=== PATIENT | male | born 1980 | race Two or more races ===

== ENCOUNTER 2018-03-10 23:20 | Emergency (ER) | payer SELFPAY ==
[2018-03-11] MEDS: fentaNYL PF VIAL 100 MCG/2 ML VIAL IV
[2018-03-11 00:22] LABS: LACTIC ACID 1.6 mmol/L (0.4-2.0)
[2018-03-11] MEDS: MORPHINE SULFATE 4 MG/ML DISP.SYRIN. IV (00:45)
[2018-03-11 00:50] LABS: ADD MAN DIFF? YES; BASO % 0 % (0-3); EOS # 0.1 x10^3/uL (0.0-0.7); EOS % 1 % (0-3); HEMATOCRIT 46.9 % (39.0-53.0); HEMOGLOBIN 16.2 g/dL (13.0-17.5); LYMPH # 1.6 x10^3/uL (1.0-4.8); LYMPH % 10 % (24-48); MEAN CORPUSCULAR HEMOGLOBIN 30 pg (25-35); MEAN CORPUSCULAR HGB CONC 35 g/dL (31-37); MEAN CORPUSCULAR VOLUME 85 fL (79-100); MONO # 1.7 x10^3/uL (0.0-1.1); MONO % 10 % (0-9); NEUT # 12.8 x10^3uL (1.8-7.7); NEUT % 79 % (31-73); PLATELET COUNT 259 x10^3/uL (140-400); RED BLOOD COUNT 5.49 x10^6/uL (4.30-5.70); RED CELL DISTRIBUTION WIDTH 13.6 % (11.5-14.5); WHITE BLOOD COUNT 16.2 x10^3/uL (4.0-11.0)
[2018-03-11 00:51] LABS: BILIRUBIN,URINE SMALL (NEG); CLARITY,URINE CLEAR; COLOR,URINE AMBER; GLUCOSE,URINE NEGATIVE (NEG); NITRITE,URINE NEGATIVE (NEG); PH,URINE 6.5; PROTEIN,URINE NEGATIVE (NEG-TRACE)
[2018-03-11 01:03] LABS: ANION GAP 7 (6-14); BLOOD UREA NITROGEN 11 mg/dL (8-26); BUN/CREATININE RATIO 14 (6-20); CALCIUM 8.4 mg/dL (8.5-10.1); CARBON DIOXIDE 27 mmol/L (21-32); CHLORIDE 100 mmol/L (98-107); CREATININE 0.8 mg/dL (0.7-1.3); GFR 109.4; GLUCOSE 105 mg/dL (70-99); POTASSIUM 3.7 mmol/L (3.5-5.1); SODIUM 134 mmol/L (136-145)
[2018-03-11 01:04] LABS: BACTERIA,URINE FEW /HPF (0-FEW); WBC,URINE TNTC /HPF (0-4)
[2018-03-11 01:09] LABS: ALBUMIN 3.2 g/dL (3.4-5.0); ALBUMIN/GLOBULIN RATIO 0.7 (1.0-1.7); ALK PHOS 101 U/L (46-116); ALT (SGPT) 41 U/L (16-63); AST (SGOT) 51 U/L (15-37); LIPASE 143 U/L (73-393); TOTAL BILIRUBIN 1.4 mg/dL (0.2-1.0); TOTAL PROTEIN 7.7 g/dL (6.4-8.2)
[2018-03-11 01:28] LABS: % EOS 2 % (0-5); % LYMPHS 8 % (24-48); % MONOS 8 % (0-10); % SEGS 82 % (35-66); PLT ESTIMATE ADEQUATE (ADEQUATE)
[2018-03-11] MEDS: AZITHROMYCIN 250 MG TABLET. PO (02:00)
== END 2018-03-11 02:16 | disposition home or self-care (01) ==
LOC: ER 23:20
DX: N45.3 Epididymo-orchitis (principal); R10.31 Right lower quadrant pain; R30.0 Dysuria
CPT/HCPCS: 36415; 76870; 80053; 81001; 83605; 83690; 85007; 85025; 87086; 96374; 96375; 99285-25; J2270; J3010; Q0144

== ENCOUNTER 2021-08-10 11:18 | Emergency (ER) | payer SELFPAY ==
[~2021-08-10] VITALS: Ht 177.8 cm; Wt 94.1 kg
[~2021-08-10 11:18] MED LIST: DOXY100T PO
[2021-08-10] MEDS ORDERED: FAMOTIDINE 20 MG/2 ML VIAL IVP ONE (12:15)
[2021-08-10] MEDS ORDERED: KETOROLAC 30 MG/ML VIAL. IVP ONE (12:15)
[2021-08-10] MEDS ORDERED: IV NORMAL SALINE 1000ML BAG 1,000 ML IV ONE (12:15)
--- NOTE | 2021-08-10 12:18 | PHYS DOC ---
Past Medical History Past Medical History: No Pertinent History Past Surgical History: Cholecystectomy Smoking Status: Current Every Day Smoker Alcohol Use: None Drug Use: None General Adult EDM: Chief Complaint: ABDOMINAL PAIN HPI: HPI: Patient is a 40-year-old male that presents today with upper abdominal pain. Patient states the pain started 2 days ago patient does report that he had gallbladder removal last week at [facility] patient is unsure of who the surgeon was. Patient denies nausea and vomiting, patient states he did have a little heartburn this morning, he did eat breakfast this morning as well. Patient does report having chills starting today but no documented fever, patient reports no diarrhea Review of Systems: Review of Systems: Constitutional: chills. [] Eyes: Denies change in visual acuity. [] HENT: Denies nasal congestion or sore throat. [] Respiratory: Denies cough or shortness of breath. [] Cardiovascular: Denies chest pain or edema. [] GI: abdominal pain, DENIES nausea, vomiting, bloody stools or diarrhea. [] : Denies dysuria. [] Musculoskeletal: Denies back pain or joint pain. [] Integument: Denies rash. [] Neurologic: Denies headache, focal weakness or sensory changes. [] Endocrine: Denies polyuria or polydipsia. [] Lymphatic: Denies swollen glands. [] Psychiatric: Denies depression or anxiety. [] Heart Score: C/O Chest Pain: N/A Risk Factors: Risk Factors: DM, Current or recent (<one month) smoker, HTN, HLP, family history of CAD, obesity. Risk Scores: Score 0 - 3: 2.5% MACE over next 6 weeks - Discharge Home Score 4 - 6: 20.3% MACE over next 6 weeks - Admit for Clinical Observation Score 7 - 10: 72.7% MACE over next 6 weeks - Early Invasive Strategies Current Medications: Current Medications Medications (Trade) Dose Ordered Sig/Paty Start Time Stop Time Status Last Admin Dose Admin Famotidine (Pepcid Vial) 20 mg 1X ONCE 08/10/21 12:15 08/10/21 12:16 UNV Ketorolac Tromethamine (Toradol 30mg Vial) 30 mg 1X ONCE 08/10/21 12:15 08/10/21 12:16 UNV Sodium Chloride 1,000 ml @ 999 mls/hr 1X ONCE 08/10/21 12:15 08/10/21 13:15 UNV Allergies: Allergies: Allergies Coded Allergies Type Severity Reaction Last Updated Verified No Known Drug Allergies 03/10/18 No Physical Exam: PE: Constitutional: Well developed, well nourished, mild distress, non-toxic appearance. [] HENT: Normocephalic, atraumatic, bilateral external ears normal, oropharynx moist, no oral exudates, nose normal. [] Eyes: PERRLA, EOMI, conjunctiva normal, no discharge. [] Neck: Normal range of motion, no tenderness, supple, no stridor. [] Cardiovascular:Heart rate regular rhythm, no murmur [] Lungs & Thorax: Bilateral breath sounds clear to auscultation [] Abdomen: Abdomen is soft tender with palpation along the epigastric area no masses noted, bowel sounds are hypoactive Skin: Warm, dry, no erythema, no rash. [] Back: No tenderness, no CVA tenderness. [] Extremities: No tenderness, no cyanosis, no clubbing, ROM intact, no edema. [] Neurologic: Alert and oriented X 3, normal motor function, normal sensory function, no focal deficits noted. [] Psychologic: Affect normal, judgement normal, mood normal. [] Current Patient Data: Labs: Laboratory Tests Test 08/10/21 12:30 White Blood Count 8.8 x10^3/uL Red Blood Count 5.41 x10^6/uL Hemoglobin 15.7 g/dL Hematocrit 45.7 % Mean Corpuscular Volume 84 fL Mean Corpuscular Hemoglobin 29 pg Mean Corpuscular Hemoglobin Concent 34 g/dL Red Cell Distribution Width 14.3 % Platelet Count 261 x10^3/uL Neutrophils (%) (Auto) 76 % Lymphocytes (%) (Auto) 11 % Monocytes (%) (Auto) 9 % Eosinophils (%) (Auto) 3 % Basophils (%) (Auto) 1 % Neutrophils # (Auto) 6.7 x10^3/uL Lymphocytes # (Auto) 1.0 x10^3/uL Monocytes # (Auto) 0.8 x10^3/uL Eosinophils # (Auto) 0.3 x10^3/uL Basophils # (Auto) 0.0 x10^3/uL Urine Collection Type Unknown Urine Color [place] Urine Clarity Clear Urine pH Urine Specific [place] Urine Protein mg/dL Urine Glucose (UA) Negative mg/dL Urine Ketones (Stick) mg/dL Urine Blood Urine Nitrite Urine Bilirubin Urine Urobilinogen Dipstick mg/dL Urine Leukocyte Esterase Urine RBC 0 /HPF Urine WBC 0 /HPF Urine Squamous Epithelial Cells Occ /LPF Urine Bacteria 0 /HPF Urine Mucus Marked /LPF Sodium Level 134 mmol/L Potassium Level 3.5 mmol/L Chloride Level 100 mmol/L Carbon Dioxide Level 24 mmol/L Anion Gap 10 Blood Urea Nitrogen 11 mg/dL Creatinine 0.7 mg/dL Estimated GFR (Cockcroft-Gault) 125.5 BUN/Creatinine Ratio 16 Glucose Level 99 mg/dL Calcium Level 8.4 mg/dL Total Bilirubin 5.6 mg/dL Direct Bilirubin 3.7 mg/dL Aspartate Amino Transf (AST/SGOT) 262 U/L Alanine Aminotransferase (ALT/SGPT) 308 U/L Alkaline Phosphatase 275 U/L Total Protein 6.9 g/dL Albumin 3.1 g/dL Albumin/Globulin Ratio 0.8 Lipase 117 U/L Current Medications Medications (Trade) Dose Ordered Sig/Paty Route PRN Reason Start Time Stop Time Status Last Admin Dose Admin Sodium Chloride 1,000 ml @ 999 mls/hr 1X ONCE IV 08/10/21 12:15 08/10/21 13:15 DC 08/10/21 12:38 Ketorolac Tromethamine (Toradol 30mg Vial) 30 mg 1X ONCE IVP 08/10/21 12:15 08/10/21 12:17 DC 08/10/21 12:39 Famotidine (Pepcid Vial) 20 mg 1X ONCE IVP 08/10/21 12:15 08/10/21 12:17 DC 08/10/21 12:39 Iohexol (Omnipaque 300 Mg/ml) 75 ml 1X ONCE IV 08/10/21 13:00 08/10/21 13:01 DC 08/10/21 13:05 Info (CONTRAST GIVEN -- Rx MONITORING) 1 each PRN DAILY PRN MC SEE COMMENTS 08/10/21 13:00 08/12/21 12:59 Fentanyl Citrate (Fentanyl 2ml Vial) 75 mcg 1X ONCE IVP 08/10/21 13:45 08/10/21 13:46 DC Vital Signs: Vital Signs Date Time Temp Pulse Resp B/P (MAP) Pulse Ox O2 Delivery O2 Flow Rate FiO2 08/10/21 15:12 73 101/63 (76) 99 Room Air 08/10/21 14:42 69 99/55 (70) 99 Room Air 08/10/21 14:32 18 98 Room Air 08/10/21 14:12 72 98/62 (74) 98 Room Air 08/10/21 13:42 60 105/73 (84) 97 Room Air 08/10/21 13:12 61 104/64 (77) 98 Room Air 08/10/21 11:25 97.4 73 18 109/60 (76) 100 Room Air 97.4 Vital Signs Date Time Temp Pulse Resp B/P (MAP) Pulse Ox O2 Delivery O2 Flow Rate FiO2 08/10/21 11:25 97.4 73 18 109/60 (76) 100 Room Air 97.4 EKG: EKG: [] Radiology/Procedures: Radiology/Procedures: REASON: ABDOMINAL PAIN, gb REMOVAL LAST WEEK PROCEDURE: CT ABD PELV W/ IV CONTRST ONLY CT abdomen and pelvis with contrast PQRS statement: CT scans at this facility use dose reduction including either automated exposure control, iterative reconstructions, and /or weight based radiation dosing via mA and kV modification when appropriate to reduce radiation dose to as low as reasonably achievable. HISTORY: Abdominal pain. Post cholecystectomy one week ago. Contrast: 75 mL Omnipaque 300 intravenous contrast. Abdomen findings: Mild volume loss and atelectasis of the lung bases. Asymmetric opacity of the right lower lobe could be due to asymmetric atelectasis although superimposed pneumonia is not excluded. No pneumoperitoneum. Mild prominence of the bile ducts typical after cholecystectomy. There is very mild hypodense edema at the pablo hepatis and gallbladder fossa likely resolving postsurgical edema. No drainable fluid collection evident. Left renal upper pole 1.2 cm cyst density 15 units. 3 mm left renal upper pole nonobstructing calculus. Right kidney, adrenal glands, pancreas, spleen and liver are normal. The appendix is negative. No obstruction or inflammatory changes in GI tract. No abdominal fluid or fluid collections. No adenopathy. Vessels are unremarkable. Mild umbilical abdominal wall edema and right upper quadrant focal areas of edema from recent laparoscopy port sites. No abdominal hematoma or hernia. Bones unremarkable. Pelvis findings: Bladder, prostate, rectum and bones are unremarkable. No pelvic fluid or fluid collection. No adenopathy. IMPRESSION: 1. Recent postoperative changes of laparoscopic cholecystectomy. No acute proce ss evident. No fluid or fluid collection in the abdomen or pelvis. Mild prominence of the bile ducts typical after cholecystectomy. 2. Appendix is negative. 3. Mild volume loss and atelectasis of the lung bases with asymmetric opacity at the right lower lobe likely due to asymmetric atelectasis. Right lower lobe pneumonia is not excluded. Electronically signed by: Brian Heaton MD (08/10/2021 1:42 PM) [place] REASON: upper abdominal pain s/p gall bladder removal PROCEDURE: ABDOMEN LTD EXAM: ULTRASOUND ABDOMEN LIMITED CLINICAL HISTORY: Upper abdominal pain status post cholecystectomy COMPARISON: CT abdomen July 10, 2021 Findings: Imaged segments of the pancreas, upper abdominal aorta and upper abdominal IVC are normal. Shadowing limits visualization of the tail the pancreas and lower abdominal segments of the aorta and IVC. Normal liver echogenicity. No liver mass documented. No morphologic changes of liver cirrhosis evident. There is patent hepatopedal portal vein blood flow. No biliary ductal dilation, the upper common bile duct diameter is 3 mm, the distal common bile duct is obscured by bowel gas shadowing. Cholecystectomy. No perihepatic fluid or fluid collections documented. Right renal length 13.2 cm. No mass or hydronephrosis of the right kidney evident. Spleen and left kidney were not evaluated. IMPRESSION: Cholecystectomy. No biliary ductal dilation. No perihepatic free fluid or fluid collections documented. No acute abnormality evident. Electronically signed by: Brian Heaton MD (08/10/2021 2:57 PM) [place] [] Course & Med Decision Making: Course & Med Decision Making Pertinent Labs and Imaging studies reviewed. (See chart for details) [address] Russo the admitting service about admitting the patient for elevated liver enzymes he requested an ultrasound of upper abdomen be done and also a direct bili bilirubin be done as well [address] results show postoperative gallbladder removal changes no abscess or leak noted. Patient states pain is better but still there, no nausea or vomiting or diarrhea since he has been here. When asked about follow-up with his general surgeon patient state he was post to follow-up last week and did not do so, patient encouraged to follow-up with surgeon when he leaves here today to make a follow-up appointment as soon as possible. Patient instructed to return for fever, increased abdominal pain, skin turns yellow or eyes turn yellow, or nausea and vomiting. Patient will be given hydrocodone for pain. Patient is agreeable with going home and following up with his primary care physician [] Bob Disclaimer: Bob Disclaimer: This electronic medical record was generated, in whole or in part, using a voice recognition dictation system. Departure Departure Impression: Primary Impression: Abdominal pain Qualified Codes: R10.13 - Epigastric pain Additional Impression: Post cholangiogram abdominal pain Disposition: HOME / SELF CARE / HOMELESS Condition: STABLE Referrals: NO PCP (PCP) Patient Instructions: Abdominal Pain Additional Instructions: Clear liquids for the next 12 to 24 hours advance diet as tolerated Hydrocodone as needed for severe pain May take Motrin for mild to moderate pain Follow-up with a general surgeon at [facility] where your gout surgery was done for follow-up LILIANA Return to the emergency department for increased abdominal pain, fever, skin or eyes turning yellow and uncontrolled nausea or vomiting. Scripts Hydrocodone Bit/Acetaminophen (HYDROCODONE-APAP 5-325 ) 1 Tab Tablet 1 TAB PO PRN Q6HRS PRN for PAIN, #10 TAB 0 Refills Prov: LUCHO HANDY APRN 08/10/21 LUCHO HANDY APPLICATION SUPPORT ANALYST Aug 10, 2021 12:18
[2021-08-10 12:43] LABS: BASO % 1 % (0-3); EOS # 0.3 x10^3/uL (0.0-0.7); EOS % 3 % (0-3); HEMATOCRIT 45.7 % (39.0-53.0); HEMOGLOBIN 15.7 g/dL (13.0-17.5); LYMPH % 11 % (24-48); MEAN CORPUSCULAR HEMOGLOBIN 29 pg (25-35); MEAN CORPUSCULAR HGB CONC 34 g/dL (31-37); MEAN CORPUSCULAR VOLUME 84 fL (79-100); MONO # 0.8 x10^3/uL (0.0-1.1); MONO % 9 % (0-9); NEUT # 6.7 x10^3/uL (1.8-7.7); NEUT % 76 % (31-73); PLATELET COUNT 261 x10^3/uL (140-400); RED BLOOD COUNT 5.41 x10^6/uL (4.30-5.70); RED CELL DISTRIBUTION WIDTH 14.3 % (11.5-14.5); WHITE BLOOD COUNT 8.8 x10^3/uL (4.0-11.0)
[2021-08-10 12:47] LABS: CLARITY,URINE CLEAR
[2021-08-10 12:52] LABS: CALCIUM 8.4 mg/dL (8.5-10.1); CREATININE 0.7 mg/dL (0.7-1.3); GFR 125.5; POTASSIUM 3.5 mmol/L (3.5-5.1)
[2021-08-10 12:57] LABS: ALBUMIN 3.1 g/dL (3.4-5.0); ALBUMIN/GLOBULIN RATIO 0.8 (1.0-1.7); TOTAL BILIRUBIN 5.6 mg/dL (0.2-1.0)
[2021-08-10 12:59] LABS: TOTAL PROTEIN 6.9 g/dL (6.4-8.2)
[2021-08-10] MEDS ORDERED: IOHEXOL 300 MG/ML 100ML VIAL. IV ONE (13:00)
[2021-08-10] MEDS ORDERED: CONTRAST GIVEN. MC PRN (13:00)
[2021-08-10 13:01] LABS: COLOR,URINE ORANGE
[2021-08-10 13:02] LABS: BACTERIA,URINE 0 /HPF (0-FEW); RBC,URINE 0 /HPF (0-2); WBC,URINE 0 /HPF (0-4)
--- NOTE | 2021-08-10 13:44 | RAD ---
CT abdomen and pelvis with contrast PQRS statement: CT scans at this facility use dose reduction including either automated exposure cont rol, iterative reconstructions, and /or weight based radiation dosing via mA and kV modification when appropriate to reduce radiation dose to as low as reasonably achievable. HISTORY: Abdominal pain. Post cholecystectomy one week ago. Contrast: 75 mL Omnipaque 300 intravenous contrast. Abdomen findings: Mild volume loss and atelectasis of the lung bases. Asymmetric opacity of the right lower lobe could be due to asymmetric atelectasis although superimposed pneumonia is not excluded. N o pneumoperitoneum. Mild prominence of the bile ducts typical after cholecystectomy. There is very mi ld hypodense edema at the pablo hepatis and gallbladder fossa likely resolving postsurgical edema. No drainable fluid collection evident. Left renal upper pole 1.2 cm cyst density 15 units. 3 mm left re nal upper pole nonobstructing calculus. Right kidney, adrenal glands, pancreas, spleen and liver are normal. The appendix is negative. No obstruction or inflammatory changes in GI tract. No abdominal fl uid or fluid collections. No adenopathy. Vessels are unremarkable. Mild umbilical abdominal wall grecia a and right upper quadrant focal areas of edema from recent laparoscopy port sites. No abdominal letitia jerome or hernia. Bones unremarkable. Pelvis findings: Bladder, prostate, rectum and bones are unremarkable. No pelvic fluid or fluid colle ction. No adenopathy. IMPRESSION: 1. Recent postoperative changes of laparoscopic cholecystectomy. No acute process evident. No fluid o r fluid collection in the abdomen or pelvis. Mild prominence of the bile ducts typical after cholecys tectomy. 2. Appendix is negative. 3. Mild volume loss and atelectasis of the lung bases with asymmetric opacity at the right lower lobe likely due to asymmetric atelectasis. Right lower lobe pneumonia is not excluded. Electronically signed by: Brian Heaton MD (08/10/2021 1:42 PM) [facility]
[2021-08-10] MEDS ORDERED: fentaNYL PF VIAL 100 MCG/2 ML VIAL IVP ONE (13:45)
--- NOTE | 2021-08-10 14:59 | RAD ---
EXAM: ULTRASOUND ABDOMEN LIMITED CLINICAL HISTORY: Upper abdominal pain status post cholecystectomy COMPARISON: CT abdomen July 10, 2021 Findings: Imaged segments of the pancreas, upper abdominal aorta and upper abdominal IVC are normal. Shadowing limits visualization of the tail the pancreas and lower abdominal segments of the aorta and IVC. Normal liver echogenicity. No liver mass documented. No morphologic changes of liver cirrhosis eviden t. There is patent hepatopedal portal vein blood flow. No biliary ductal dilation, the upper common b ile duct diameter is 3 mm, the distal common bile duct is obscured by bowel gas shadowing. Cholecyste ctomy. No perihepatic fluid or fluid collections documented. Right renal length 13.2 cm. No mass or hydronephrosis of the right kidney evident. Spleen and left ki dney were not evaluated. IMPRESSION: Cholecystectomy. No biliary ductal dilation. No perihepatic free fluid or fluid collectio ns documented. No acute abnormality evident. Electronically signed by: Brian Heaton MD (08/10/2021 2:57 PM) [facility]
[2021-08-10 15:12] VITALS: BP 101/63
[2021-08-10] MEDS ORDERED: HYDR-3068 PO (15:34)
[2021-08-10] MEDS ORDERED: HYDR-2761 PO (15:58)
== END 2021-08-10 15:35 | disposition home or self-care (01) ==
LOC: ER 11:18
DX: R10.13 Epigastric pain (principal); F17.200 Nicotine dependence, unspecified, uncomplicated; Z90.49 Acquired absence of other specified parts of digestive tract
CPT/HCPCS: 36415; 74177; 76705; 80053; 81001; 82248; 83690; 85025; 96361; 96374; 96375; 99285; J1885; J3010; J3490; J7030; Q9967